=== PATIENT | male | born 2000 | race Caucasian/White ===

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

== ENCOUNTER 2023-08-24 11:41 | Emergency (ER) | payer OTHER ==
[2023-08-24 11:46] VITALS: BP 109/72; PULSE 111; RESP 20; TEMP 99; BMI 22.6
[2023-08-24] MEDS ORDERED: SODIUM CHLORIDE 0.9% 500 ML INFUS.BAG IV ONE (12:11)
[2023-08-24] MEDS ORDERED: ONDANSETRON 4 MG/2 ML VIAL IVPB ONE (12:11)
[2023-08-24] MEDS ORDERED: ACETAMINOPHEN 1000 MG/100 ML BAG IVPB ONE (12:11)
[2023-08-24] MEDS ORDERED: ACETAMINOPHEN INJECTION 100 ML IVPB ONE (12:45)
[2023-08-24] MEDS ORDERED: ONDANSETRON 4 MG/2 ML VIAL ONE (12:46)
== END 2023-08-24 14:15 | disposition home or self-care (01) ==
LOC: JERFT 11:41
PROC: 3E033NZ Introduction of Analgesics, Hypnotics, Sedatives into Peripheral Vein, Percutaneous Approach (ICD-10-PCS; principal; 2023-08-24)
PROC: 3E033GC Introduction of Other Therapeutic Substance into Peripheral Vein, Percutaneous Approach (ICD-10-PCS; 2023-08-24)
DX: R11.2 Nausea with vomiting, unspecified (principal); R50.9 Fever, unspecified; R51.9 Headache, unspecified; B34.9 Viral infection, unspecified; Z20.822 Contact with and (suspected) exposure to COVID-19
CPT/HCPCS: 0241U-QW; 99284-25; J0131